=== PATIENT | male | born 1950 | race African-American/Black ===

== ENCOUNTER 2024-02-06 17:16 | Observation (INO) | payer MEDICARE ==
--- NOTE | 2024-02-06 17:18 | ED ---
Weakness HPI - General Stated complaint: Failure to thrive Time Seen by Provider: 02/06/24 17:18 Source: RN notes reviewed, old records reviewed, Caregiver Mode of arrival: EMS Limitations: altered mental status, physical limitation - History of Present Illness Initial comments: This is a 73-year-old male to the ER for evaluation today. Patient notes today for evaluation regards to altered mental status weakness debility failure to thrive. Patient is brought to emergency department for evaluation of failure to thrive weakness as he was seen by family members who thinks that it is significant altered mentally and back condition not taking care of himself not eating or drinking Patient is unable to provide any answers to questions here in the ER MD Complaint: generalized weakness, lack of energy, difficulty walking -: unknown Location: generalized Severity: severe Severity scale (1-10): 10 Consistency: constant Improves with: none Worsens with: none Context: history of similar Associated Symptoms: denies other symptoms, confusion - Related Data Allergies Allergy/AdvReac Type Severity Reaction Status Date / Time No Known Allergies Allergy Verified 02/06/24 17:51 Review of Systems ROS Statement: Those systems with pertinent positive or pertinent negative responses have been documented in the HPI. ROS Other: All systems not noted in ROS Statement are negative. General Exam Limitations: altered mental status, physical limitation General appearance: alert, in no apparent distress Head exam: Present: atraumatic, normocephalic, normal inspection Eye exam: Present: normal appearance, PERRL, EOMI. Absent: scleral icterus, conjunctival injection, periorbital swelling ENT exam: Present: normal exam, mucous membranes moist Neck exam: Present: normal inspection. Absent: tenderness, meningismus, lymphadenopathy Respiratory exam: Present: normal lung sounds bilaterally. Absent: respiratory distress, wheezes, rales, rhonchi, stridor Cardiovascular Exam: Present: regular rate, normal rhythm, normal heart sounds. Absent: systolic murmur, diastolic murmur, rubs, gallop, clicks GI/Abdominal exam: Present: soft, normal bowel sounds. Absent: distended, tenderness, guarding, rebound, rigid Extremities exam: Present: normal inspection, full ROM, normal capillary refill. Absent: tenderness, pedal edema, joint swelling, calf tenderness Back exam: Present: normal inspection Neurological exam: Present: alert, oriented X3, CN II-XII intact Psychiatric exam: Present: normal affect, normal mood Skin exam: Present: warm, dry, intact, normal color. Absent: rash Course Vital Signs 02/06/24 02/06/24 17:43 18:40 Temperature 97.9 F Pulse Rate 99 90 Respiratory 18 20 Rate Blood Pressure 105/72 121/78 O2 Sat by Pulse 97 93 L Oximetry - Reevaluation(s) Reevaluation #1: 02/06/24 17:38 Medical records reviewed Reevaluation #2: 02/06/24 21:09 Patient has no improvement here in the ER Reevaluation #3: 02/06/24 21:09 Patient informed of results questions answered Reevaluation #4: Was pt. sent in by a medical professional or institution (, SONAM, INTERNAL MEDICINE NURSE PRACTITIONER, urgent care, hospital, or correction...) When possible be specific @ -no Did you speak to anyone other than the patient for history (EMS, parent, family, police, friend...)? What history was obtained from this source @ -no Did you review nursing and triage notes (agree or disagree)? Why? @ -agree Are old charts reviewed (outside hosp., previous admission, EMS record, old EKG, old radiological studies, urgent care reports/EKG's, correction records)? Report findings @ -yes Differential Diagnosis (chest pain, altered mental status, abdominal pain women, abdominal pain men, vaginal bleeding, weakness, fever, dyspnea, syncope, headache, dizziness, GI bleed, back pain, seizure, CVA, palpatations, mental health, musculoskeletal)? @ -prior EKG interpreted by me (3pts min.). @ -yes X-rays interpreted by me (1pt min.). @ -yes negative for acute disease CT interpreted by me (1pt min.). @ -no U/S interpreted by me (1pt. min.). @ -no What testing was considered but not performed or refused? (CT, X-rays, U/S, labs)? Why? @ -none What meds were considered but not given or refused? Why? @ -none Did you discuss the management of the patient with other professionals ( professionals i.e. SONAM Steiner, INTERNAL MEDICINE NURSE PRACTITIONER, lab, RT, psych nurse, social work supervisor, typesetter perforator operator, teacher, correction officer city or county jail, showcase maker)? Give summary @ -no Was smoking cessation discussed for >3mins.? @ -no Was critical care preformed (if so, how long)? @ -no Were there social determinants of health that impacted care today? How? (Homelessness, low income, unemployed, alcoholism, drug addiction, transportation, low edu. Level, literacy, decrease access to med. care, alf, rehab)? @ -none Was there de-escalation of care discussed even if they declined (Discuss DNR or withdrawal of care, Hospice)? DNR status @ -no What co-morbidities impacted this encounter? (DM, HTN, Smoking, COPD, CAD, Cancer, CVA, ARF, Chemo, Hep., AIDS, mental health diagnosis, sleep apnea, morbid obesity)? @ -none Was patient admitted / discharged? Hospital course, mention meds given and route, prescriptions, significant lab abnormalities, going to OR and other pertinent info. @ - Undiagnosed new problem with uncertain prognosis? @ -no Drug Therapy requiring intensive monitoring for toxicity (Heparin, Nitro, Insulin, Cardizem)? @ -no Were any procedures done? @ -no Diagnosis/symptom? @ - Acute, or Chronic, or Acute on Chronic? @ -Acute Uncomplicated (without systemic symptoms) or Complicated (systemic symptoms)? @ -Complicated Side effects of treatment? @ -no Exacerbation, Progression, or Severe Exacerbation? @ -exacerbation Poses a threat to life or bodily function? How? (Chest pain, USA, WA, pneumonia, PE, COPD, DKA, ARF, appy, cholecystitis, CVA, Diverticulitis, Homicidal, Suicidal, threat to staff... and all critical care pts) @ -yes Reevaluation #5: Differential Altered Mental Status: Hypoglycemia, DKA, hypercapnia, ETOH, overdose, CO poisoning, trauma, myxedema coma, HTN encephalopathy, infection, encephalitis, psychosis, intercranial hemorrhage, hepatic encephalopathy, meningitis, CVA, this is not meant to be an all-inclusive list Differential Weakness: Hypoglycemia, shock, sepsis, hyponatremia, anemia, infection, WA, ETOH, adverse medicine reaction, overdose, stroke, this is not meant to be an all-inclusive list. - Consultations Consultation #1: Spoke with [facility] who agrees to admit this patient EKG Findings - EKG Comments: EKG Findings:: EKG is sinus 96 OK 161 QRS 89 QTc 386 - EKG Results: EKG: interpreted by ERMD Medical Decision Making - Medical Decision Making 73 male will be admitted for weakness failure to thrive and debility, severe dehydration and able to take care of himself. - Lab Data Result diagrams: 02/06/24 18:28 02/06/24 18:25 Lab Results 02/06/24 02/06/24 02/06/24 Range/Units 18:25 18:25 18:25 WBC (3.8-10.6) k/uL RBC (4.30-5.90) m/uL Hgb (13.0-17.5) gm/dL Hct (39.0-53.0) % MCV (80.0-100.0) fL MCH (25.0-35.0) pg MCHC (31.0-37.0) g/dL RDW (11.5-15.5) % Plt Count (150-450) k/uL MPV Neutrophils % % Lymphocytes % % Monocytes % % Eosinophils % % Basophils % % Neutrophils # (1.3-7.7) k/uL Lymphocytes # (1.0-4.8) k/uL Monocytes # (0-1.0) k/uL Eosinophils # (0-0.7) k/uL Basophils # (0-0.2) k/uL PT 11.0 (10.0-12.5) sec INR 1.0 (<1.2) APTT 23.9 (22.0-30.0) sec Sodium 138 (137-145) mmol/L Potassium 4.1 (3.5-5.1) mmol/L Chloride 101 (98-107) mmol/L Carbon Dioxide 33 H (22-30) mmol/L Anion Gap 4 mmol/L BUN 28 H (9-20) mg/dL Creatinine 0.82 (0.66-1.25) mg/dL Est GFR (CKD-EPI)AfAm >90 (>60 ml/min/1.73 sqM) Est GFR (CKD-EPI)NonAf 88 (>60 ml/min/1.73 sqM) Glucose 116 H (74-99) mg/dL Calcium 9.4 (8.4-10.2) mg/dL Phosphorus 3.3 (2.5-4.5) mg/dL Magnesium 2.3 (1.6-2.3) mg/dL Total Bilirubin 1.2 (0.2-1.3) mg/dL AST 45 (17-59) U/L ALT 35 (4-49) U/L Alkaline Phosphatase 91 (38-126) U/L Ammonia (<30) umol/L Troponin I <0.012 (0.000-0.034) ng/mL Total Protein 6.6 (6.3-8.2) g/dL Albumin 3.6 (3.5-5.0) g/dL TSH 4.600 (0.465-4.680) mIU/L Serum Alcohol <10 mg/dL 02/06/24 02/06/24 Range/Units 18:25 18:28 WBC 18.2 H (3.8-10.6) k/uL RBC 5.27 (4.30-5.90) m/uL Hgb 14.1 (13.0-17.5) gm/dL Hct 43.5 (39.0-53.0) % MCV 82.6 (80.0-100.0) fL MCH 26.8 (25.0-35.0) pg MCHC 32.4 (31.0-37.0) g/dL RDW 14.7 (11.5-15.5) % Plt Count 336 (150-450) k/uL MPV 7.5 Neutrophils % 65 % Lymphocytes % 28 % Monocytes % 4 % Eosinophils % 0 % Basophils % 0 % Neutrophils # 11.9 H (1.3-7.7) k/uL Lymphocytes # 5.1 H (1.0-4.8) k/uL Monocytes # 0.8 (0-1.0) k/uL Eosinophils # 0.0 (0-0.7) k/uL Basophils # 0.1 (0-0.2) k/uL PT (10.0-12.5) sec INR (<1.2) APTT (22.0-30.0) sec Sodium (137-145) mmol/L Potassium (3.5-5.1) mmol/L Chloride (98-107) mmol/L Carbon Dioxide (22-30) mmol/L Anion Gap mmol/L BUN (9-20) mg/dL Creatinine (0.66-1.25) mg/dL Est GFR (CKD-EPI)AfAm (>60 ml/min/1.73 sqM) Est GFR (CKD-EPI)NonAf (>60 ml/min/1.73 sqM) Glucose (74-99) mg/dL Calcium (8.4-10.2) mg/dL Phosphorus (2.5-4.5) mg/dL Magnesium (1.6-2.3) mg/dL Total Bilirubin (0.2-1.3) mg/dL AST (17-59) U/L ALT (4-49) U/L Alkaline Phosphatase (38-126) U/L Ammonia <9 (<30) umol/L Troponin I (0.000-0.034) ng/mL Total Protein (6.3-8.2) g/dL Albumin (3.5-5.0) g/dL TSH (0.465-4.680) mIU/L Serum Alcohol mg/dL - Radiology Data Radiology results: report reviewed (Plain chest x-ray negative for acute disease), image reviewed Disposition Clinical Impression: Dehydration, Weakness, Failure to thrive, Anorexia Disposition: ADMITTED IP TO THIS [facility] Condition: Fair Is patient prescribed a controlled substance at d/c from ED?: No Referrals: None,Stated [Primary Care Provider] - 1-2 days Time of Disposition: 21:00
[2024-02-06] MEDS: SODIUM CHLORIDE 0.9% 1,000 ML IV STA (18:38)
[2024-02-06 18:40] LABS: Basophils # (A) 0.1 k/uL (0-0.2); Basophils % (A) 0 %; Eosinophils % (A) 0 %; HCT 43.5 % (39.0-53.0); HGB 14.1 gm/dL (13.0-17.5); Lymphocytes # (A) 5.1 k/uL (1.0-4.8); Lymphocytes % (A) 28 %; MCH 26.8 pg (25.0-35.0); MCHC 32.4 g/dL (31.0-37.0); MCV 82.6 fL (80.0-100.0); Mean Platelet Volume 7.5; Monocytes # (A) 0.8 k/uL (0-1.0); Monocytes % (A) 4 %; Neutrophils # (A) 11.9 k/uL (1.3-7.7); Neutrophils % (A) 65 %; Platelet Count 336 k/uL (150-450); RBC 5.27 m/uL (4.30-5.90); RDW 14.7 % (11.5-15.5); WBC 18.2 k/uL (3.8-10.6)
[2024-02-06 18:53] LABS: ALT 35 U/L (4-49); AST 45 U/L (17-59); African American GFR (CKD) >90 (>60 ml/min/1.73 sqM); Albumin 3.6 g/dL (3.5-5.0); Alcohol <10 mg/dL; Alkaline Phosphatase 91 U/L (38-126); Anion Gap 4 mmol/L; Blood Urea Nitrogen 28 mg/dL (9-20); Calcium 9.4 mg/dL (8.4-10.2); Carbon Dioxide 33 mmol/L (22-30); Chloride 101 mmol/L (98-107); Glucose 116 mg/dL (74-99); Magnesium 2.3 mg/dL (1.6-2.3); Non-African American GFR(CKD) 88 (>60 ml/min/1.73 sqM); Phosphorus 3.3 mg/dL (2.5-4.5); Potassium 4.1 mmol/L (3.5-5.1); Sodium 138 mmol/L (137-145); Total Bilirubin 1.2 mg/dL (0.2-1.3); Total Protein 6.6 g/dL (6.3-8.2)
[2024-02-06 19:03] LABS: Partial Thromboplastin Time 23.9 sec (22.0-30.0)
--- NOTE | 2024-02-06 20:17 | XR ---
EXAMINATION TYPE: XR chest 2V DATE OF EXAM: 02/06/2024 7:33 PM COMPARISON: None available. CLINICAL INDICATION: Male, 73 years old with history of Weakness; [facility] TECHNIQUE: XR chest 2V Frontal and lateral views of the chest. FINDINGS: Lungs/Pleura: There is no evidence of pleural effusion, focal consolidation, or pneumothorax. Pulmonary vascularity: Unremarkable. Heart/mediastinum: Cardiomediastinal silhouette is unremarkable. Musculoskeletal: No acute osseous pathology. Other findings: None IMPRESSION: No acute cardiopulmonary disease/process. [facility] Honeycutt, , 02/06/2024 8:15 PM
--- NOTE | 2024-02-06 20:36 | CT ---
EXAMINATION TYPE: CT brain wo con DATE OF EXAM: 02/06/2024 7:46 PM COMPARISON: None available.. CLINICAL INDICATION: Male, 73 years old with history of ams, AMS. Pt not cooperating, scanned three t imes for motion, best possible images. TECHNIQUE: Brain: Axial CT images of the brain were obtained with coronal and sagittal reformats created and rev iewed. Contrast used: None. Oral contrast used: None. CT DLP: 3451.4 mGycm, Automated exposure control for dose reduction was used. FINDINGS: Study is significantly limited due to motion artifact. Brain: No definite intracranial hemorrhage or midline shift. No acute mass effect. Ventriculomegaly and prom inence of the sulci which could be in part related to at least moderate generalized cerebral volume l oss. No sizable extra-axial fluid collection. Basal cisterns appear grossly patent. No definite large scalp hematoma or depressed calvarial fracture. Paranasal sinuses and mastoid air cells appear paten t. IMPRESSION: No acute parenchymal hemorrhage, midline shift or mass effect within the limitations described above. Consider further evaluation with MRI if clinically warranted. [facility], , 02/06/2024 8:34 PM
[2024-02-06] MEDS ORDERED: MORPHINE SULFATE 4 MG/ML SYRINGE IV PRN (21:07)
[2024-02-06] MEDS ORDERED: NALOXONE 0.4 MG/ML 1 ML VIAL IV PRN (21:07)
[2024-02-06] MEDS ORDERED: ONDANSETRON 4 MG/2 ML VIAL IVP PRN (21:07)
[2024-02-06] MEDS: PANTOPRAZOLE 40 MG/10 ML VIAL IV SCH (21:22)
[2024-02-06] MEDS: SODIUM CHLORIDE 0.9% 1,000 ML IV SCH (21:23)
[2024-02-07 05:53] LABS: Amorphous Sediment,Urine Rare /hpf; Appearance,Urine Cloudy (Clear); Bilirubin,Urine Negative (Negative); Blood,Urine Moderate (Negative); Calcium Oxalate Crystals,Urine Many /hpf; Color,Urine Yellow; Glucose,Urine (UA) Negative (Negative); Ketones,Urine Trace (Negative); Leukocyte Esterase,Urine Small (Negative); Mucus,Urine Rare /hpf; Nitrite,Urine Negative (Negative); PH, Urine 5.5 (5.0-8.0); Protein,Urine Trace (Negative); RBC,Urine 5 /hpf (0-5); Specific Gravity,Urine 1.031 (1.001-1.035); WBC,Urine 10 /hpf (0-5)
[2024-02-07 07:52] LABS: Basophils % (A) 0 %; Eosinophils % (A) 0 %; HCT 39.6 % (39.0-53.0); HGB 12.7 gm/dL (13.0-17.5); Lymphocytes # (A) 5.1 k/uL (1.0-4.8); Lymphocytes % (A) 34 %; MCH 26.8 pg (25.0-35.0); MCV 83.9 fL (80.0-100.0); Mean Platelet Volume 7.3; Monocytes # (A) 0.7 k/uL (0-1.0); Monocytes % (A) 4 %; Neutrophils # (A) 9.1 k/uL (1.3-7.7); Neutrophils % (A) 60 %; Platelet Count 318 k/uL (150-450); RBC 4.73 m/uL (4.30-5.90); RDW 14.8 % (11.5-15.5); WBC 15.2 k/uL (3.8-10.6)
[2024-02-07 08:33] LABS: ALT 28 U/L (4-49); AST 30 U/L (17-59); African American GFR (CKD) >90 (>60 ml/min/1.73 sqM); Albumin 3.1 g/dL (3.5-5.0); Alkaline Phosphatase 77 U/L (38-126); Anion Gap 2 mmol/L; Blood Urea Nitrogen 22 mg/dL (9-20); Carbon Dioxide 30 mmol/L (22-30); Chloride 107 mmol/L (98-107); Glucose 98 mg/dL (74-99); Magnesium 2.2 mg/dL (1.6-2.3); Non-African American GFR(CKD) >90 (>60 ml/min/1.73 sqM); Phosphorus 3.4 mg/dL (2.5-4.5); Potassium 4.3 mmol/L (3.5-5.1); Sodium 139 mmol/L (137-145); Total Bilirubin 1.4 mg/dL (0.2-1.3)
[2024-02-07 13:49] VITALS: BMI 18.3
--- NOTE | 2024-02-07 22:24 | P.HPIM ---
History of Present Illness H&P Date: 02/07/24 Chief Complaint: Failure to thrive Patient is a 73-year-old male with known history of dementia, hypertension, hyperlipidemia, GERD, recent admission at [facility] due to UTI/pneumonia. Patient was brought to the hospital due to failure to thrive and altered mental status and generalized weakness. Patient was brought to the hospital by EMS and her daughter is at bedside currently. Patient is unable to take care of himself at home. Has not been eating by himself or drinking. Patient was discharged from [facility] 3 days ago. He was there for 1 week and was treated for UTI and pneumonia. According to her daughter at bedside patient has not been eating well and drinking and was still released from the hospital. He was discharged home on antibiotics on home ciprofloxacin. After reaching home patient has not acting right. Family is unable to take care of himself. Patient also had pressure ulcer in the sacral region. Apparently patient fell in July 2023 and injured his lower back. He was taken to [facility] at the time. Patient has not been ambulating since then. EKG showed sinus rhythm with heart rate 76 Chest x-ray showed no acute cardiopulmonary process. CT head showed no acute parenchymal hemorrhage, midline shift or mass effect within the limitations described above. Laboratory data showed WBC 18.2 hemoglobin 14.1 and platelets 336 Sodium 138 potassium 4.1 chloride 101 bicarb is 33 BUN 28 and creatinine 0.82 and blood sugar 116 liver enzymes are not elevated troponin x 1 negative and ammonia less than 9, TSH 4.6. Urinalysis showed trace protein trace ketones moderate blood small leukocyte esterase RBCs 5 WBCs 10. Serum alcohol level is less than 10. Review of Systems ROS unobtainable: due to mental status Past Medical History Past Medical History: Dementia, GERD/Reflux, Hyperlipidemia, Hypertension, Pneumonia History of Any Multi-Drug Resistant Organisms: None Reported Past Surgical History: No Surgical Hx Reported Past Anesthesia/Blood Transfusion Reactions: No Reported Reaction Past Psychological History: No Psychological Hx Reported Smoking Status: Never smoker Past Alcohol Use History: None Reported Past Drug Use History: None Reported Medications and Allergies Home Medications Medication Instructions Recorded Confirmed Type Aspirin EC [Ecotrin Low Dose] 81 mg PO DAILY 02/07/24 02/07/24 History Ciprofloxacin HCl [Cipro] 500 mg PO BID 02/07/24 02/07/24 History Docusate [Colace] 100 mg PO BID 02/07/24 02/07/24 History Memantine [Namenda] 10 mg PO BID 02/07/24 02/07/24 History Metoprolol Tartrate [Lopressor] 12.5 mg PO BID 02/07/24 02/07/24 History OLANZapine ODT [ZyPREXA ZYDIS] 5 mg PO HS 02/07/24 02/07/24 History Pantoprazole Sodium [Protonix] 20 mg PO BID 02/07/24 02/07/24 History Simvastatin [Zocor] 40 mg PO HS 02/07/24 02/07/24 History Valproic Acid Oral Soln [Depakene 250 mg PO BID 02/07/24 02/07/24 History Syrup] hydroCHLOROthiazide [Hydrodiuril] 25 mg PO DAILY 02/07/24 02/07/24 History Allergies Allergy/AdvReac Type Severity Reaction Status Date / Time No Known Allergies Allergy Verified 02/07/24 11:33 Physical Exam Vitals: Vital Signs Temp Pulse Pulse Resp BP BP Pulse Ox 02/07/24 07:12 97.5 F L 77 18 128/53 91 L 02/07/24 01:48 97.6 F 79 18 116/85 92 L 02/06/24 22:30 97.6 F 60 16 114/75 94 L 02/06/24 21:43 80 18 105/69 97 02/06/24 18:40 90 20 121/78 93 L 02/06/24 17:43 97.9 F 99 18 105/72 97 Intake and Output 02/06/24 02/07/24 02/07/24 22:59 06:59 14:59 Intake Total 0 Output Total 350 Balance -350 Intake: Oral 0 Output: Urine 350 Other: Voiding Method External Catheter Weight 61.5 kg PHYSICAL EXAMINATION: Patient is lying in the bed. Patient is awake alert but unable to communicate... HEENT: Normocephalic. Neck is supple. Pupils reactive. Nostrils clear. Oral cavity is moist. Neck reveals no JVD, carotid bruits, or thyromegaly. CHEST EXAMINATION: Trachea is central. Symmetrical expansion. Bibasilar diminished sounds. Lung etienne clear to auscultation and percussion. CARDIAC: Normal S1, S2 with no gallops. No murmurs ABDOMEN: Soft. Bowel sounds normal. No organomegaly. No abdominal bruits. Extremities: reveal no edema. No clubbing or cyanosis Neurologically awake, alert, oriented x 0. Contracted. No gross focal deficits. Skin: No rash or skin lesions. Psychiatric: Coperative. Could not be assessed completely Musculoskeletal: No joint swelling or deformity. Results CBC & Chem 7: 02/07/24 06:51 02/07/24 06:51 Labs: Abnormal Lab Results - Last 24 Hours (Table) 02/06/24 02/06/24 02/07/24 Range/Units 18:25 18:28 05:05 WBC 18.2 H (3.8-10.6) k/uL Hgb (13.0-17.5) gm/dL Neutrophils # 11.9 H (1.3-7.7) k/uL Lymphocytes # 5.1 H (1.0-4.8) k/uL Carbon Dioxide 33 H (22-30) mmol/L BUN 28 H (9-20) mg/dL Creatinine (0.66-1.25) mg/dL Glucose 116 H (74-99) mg/dL Total Bilirubin (0.2-1.3) mg/dL Total Protein (6.3-8.2) g/dL Albumin (3.5-5.0) g/dL Urine Protein Trace H (Negative) Urine Ketones Trace H (Negative) Urine Blood Moderate H (Negative) Ur Leukocyte Esterase Small H (Negative) Urine WBC 10 H (0-5) /hpf Calcium Oxalate Crystal Many H (None) /hpf Amorphous Sediment Rare H (None) /hpf Urine Mucus Rare H (None) /hpf 02/07/24 02/07/24 Range/Units 06:51 06:51 WBC 15.2 H (3.8-10.6) k/uL Hgb 12.7 L (13.0-17.5) gm/dL Neutrophils # 9.1 H (1.3-7.7) k/uL Lymphocytes # 5.1 H (1.0-4.8) k/uL Carbon Dioxide (22-30) mmol/L BUN 22 H (9-20) mg/dL Creatinine 0.60 L (0.66-1.25) mg/dL Glucose (74-99) mg/dL Total Bilirubin 1.4 H (0.2-1.3) mg/dL Total Protein 6.0 L (6.3-8.2) g/dL Albumin 3.1 L (3.5-5.0) g/dL Urine Protein (Negative) Urine Ketones (Negative) Urine Blood (Negative) Ur Leukocyte Esterase (Negative) Urine WBC (0-5) /hpf Calcium Oxalate Crystal (None) /hpf Amorphous Sediment (None) /hpf Urine Mucus (None) /hpf Thrombosis Risk Factor Assmnt - DVT/VTE Prophylaxis DVT/VTE Prophylaxis: Pharmacologic Prophylaxis ordered - Choose All That Apply Any of the Below Risk Factors Present?: Yes Each Factor Represents 1 point: Medical pt on bed rest, Serious lung disease incl. pneumonia (< 1month) Other Risk Factors: Yes Each Risk Factor Represents 2 Points: Age 61-74 years Other congenital or acquired thrombophilia - If yes, enter type in comment: No Thrombosis Risk Factor Assessment Total Risk Factor Score: 4 Thrombosis Risk Factor Assessment Level: Moderate Risk Assessment and Plan Assessment: Failure to thrive with generalized generalized weakness, dehydration and unable to take her himself. Advanced dementia Leukocytosis. Trending down. UA and chest x-ray negative for infection. Follow-up blood cultures. Recent admission at [facility], was treated for UTI/pneumonia Moderate to severe protein Calorie malnutrition abdominal Hypertension Hyperlipidemia GERD Sacral decub ulcer DVT prophylaxis with heparin subcu Plan: Patient will be continued on IV hydration with normal saline. Speech and swallow evaluation. One-to-one feeding. Continue supportive care. Continue with valproic acid. Zyprexa is on hold. Hydrochlorothiazide will be on hold as well. Continue pain management and follow-up closely. Family is unable to take care of himself at home. May need halfway transfer. Prognosis is guarded at this time. Time with Patient: Greater than 30
[2024-02-08] MEDS: VALPROIC ACID ORAL SOLN 250 MG/5 ML CUP PO SCH (09:22)
[2024-02-08] MEDS: ASPIRIN 81 MG PO SCH (09:23)
[2024-02-08 09:40] LABS: BUN/Creat Ratio 23.67 Ratio (12.00-20.00); Basophils # (A) 0.03 X 10*3/uL (0.00-0.10); Basophils % (A) 0.3 %; Blood Urea Nitrogen 14.2 mg/dL (9.0-27.0); Calcium 8.9 mg/dL (8.7-10.3); Carbon Dioxide 28.1 mmol/L (21.6-31.8); Chloride 111 mmol/L (96-109); Eosinophils # (A) 0.08 X 10*3/uL (0.04-0.35); Eosinophils % (A) 0.8 %; Glucose 94 mg/dL (70-110); HGB 11.1 g/dL (13.0-17.0); Lymphocytes # (A) 3.85 X 10*3/uL (0.90-5.00); Lymphocytes % (A) 37.1 %; MCH 26.9 pg (27.0-32.0); MCHC 31.7 g/dL (32.0-37.0); Mean Platelet Volume 10.2 FL (9.5-12.2); Monocytes # (A) 0.57 X 10*3/uL (0.20-1.00); Monocytes % (A) 5.5 %; NRBC Per 100 WBC 0 X 10*3/uL (0.00-0.01); Neutrophils # (A) 5.83 X 10*3/uL (1.80-7.70); Platelet Count 271 X 10*3/uL (140-440); Potassium 4.6 mmol/L (3.5-5.5); RBC 4.12 X 10*6/uL (4.40-5.60); RDW 15.1 % (11.5-14.5); Sodium 146 mmol/L (135-145); WBC 10.39 X 10*3/uL (4.50-10.00)
--- NOTE | 2024-02-08 14:51 | P.PN ---
Subjective Progress Note Date: 02/08/24 Patient is a 73-year-old male with known history of dementia, hypertension, hyperlipidemia, GERD, recent admission at [facility] due to UTI/pneumonia. Patient was brought to the hospital due to failure to thrive and altered mental status and generalized weakness. Patient was brought to the hospital by EMS and her daughter is at bedside currently. Patient is unable to take care of himself at home. Has not been eating by himself or drinking. Patient was discharged from [facility] 3 days ago. He was there for 1 week and was treated for UTI and pneumonia. According to her daughter at bedside patient has not been eating well and drinking and was still released from the hospital. He was discharged home on antibiotics on home ciprofloxacin. After reaching home patient has not acting right. Family is unable to take care of himself. Patient also had pressure ulcer in the sacral region. Apparently patient fell in July 2023 and injured his lower back. He was taken to [facility] at the time. Patient has not been ambulating since then. EKG showed sinus rhythm with heart rate 76 Chest x-ray showed no acute cardiopulmonary process. CT head showed no acute parenchymal hemorrhage, midline shift or mass effect within the limitations described above. Laboratory data showed WBC 18.2 hemoglobin 14.1 and platelets 336 Sodium 138 potassium 4.1 chloride 101 bicarb is 33 BUN 28 and creatinine 0.82 and blood sugar 116 liver enzymes are not elevated troponin x 1 negative and ammonia less than 9, TSH 4.6. Urinalysis showed trace protein trace ketones moderate blood small leukocyte esterase RBCs 5 WBCs 10. Serum alcohol level is less than 10. 02/07. Patient seen and examined. Fluids changed to D5 half-normal saline. at the bedside, states patient has been having problems swallowing. REVIEW OF SYSTEMS: CONSTITUTIONAL: No fever, no malaise,. CARDIOVASCULAR: No chest pain, no palpitations, no syncope. PULMONARY: No shortness of breath, no cough, GASTROINTESTINAL: No diarrhea, no nausea, no vomiting, no abdominal pain. NEUROLOGICAL: No headaches, no weakness, PHYSICAL EXAMINATION: GENERAL: The patient is alert, malnourished HEENT: Pupils are round and equally reacting to light. EOMI. No scleral icterus. No conjunctival pallor. Normocephalic, atraumatic. No pharyngeal erythema. No thyromegaly. CARDIOVASCULAR: S1 and S2 present. No murmurs, rubs, or gallops. PULMONARY: Chest is clear to auscultation, no wheezing or crackles. ABDOMEN: Soft, nontender, nondistended, normoactive bowel sounds. No palpable organomegaly. MUSCULOSKELETAL: No joint swelling or deformity. EXTREMITIES: No cyanosis, clubbing, or pedal edema. NEUROLOGICAL: Gross neurological examination did not reveal any focal deficits. SKIN: No rashes. Assessment and plan Failure to thrive with generalized generalized weakness, dehydration and unable to take her himself. Advanced dementia Leukocytosis. Trending down. UA and chest x-ray negative for infection. Fol low-up blood cultures. Recent admission at [facility], was treated for UTI/pneumonia Moderate to severe protein Calorie malnutrition abdominal Hypertension Hyperlipidemia GERD Sacral decub ulcer Monitor vital signs Monitor CBC Monitor CMP Fall precaution Delirium precautions continue IV hydration Speech consulted PT and OT evaluation Labs and medication were reviewed.. Continue same treatment. Continue with symptomatic treatment. Resume home medication. Monitor labs and vitals. DVT and GI prophylaxis. Further recommendations as per clinical course of the patient Dictation was produced using [employer] dictation software. please excuse any grammatical, word or spelling errors. Objective - Vital Signs Vital signs: Vital Signs Temp 97.7 F 02/08/24 11:25 Pulse 78 02/08/24 11:25 Resp 14 02/08/24 11:25 BP 126/56 02/08/24 11:25 Pulse Ox 100 02/08/24 11:25 FiO2 Intake & Output 02/07/24 02/08/24 02/08/24 18:59 06:59 18:59 Output Total 150 Balance -150 Weight 61.5 kg Output: Urine 150 Other: Voiding Method External Catheter External Catheter External Catheter # Voids 2 - Labs CBC & Chem 7: 02/08/24 05:16 02/08/24 05:16 Labs: Abnormal Lab Results - Last 24 Hours (Table) 02/08/24 02/08/24 Range/Units 05:16 05:16 WBC 10.39 H (4.50-10.00) X 10*3/uL RBC 4.12 L (4.40-5.60) X 10*6/uL Hgb 11.1 L (13.0-17.0) g/dL Hct 35.0 L (39.6-50.0) % MCH 26.9 L (27.0-32.0) pg MCHC 31.7 L (32.0-37.0) g/dL RDW 15.1 H (11.5-14.5) % Sodium 146 H (135-145) mmol/L Chloride 111 H (96-109) mmol/L BUN/Creatinine Ratio 23.67 H (12.00-20.00) Ratio Microbiology - Last 24 Hours (Table) 02/06/24 18:25 Blood Culture - Preliminary Blood
[2024-02-08] MEDS: DEXTROSE 5%-0.45% NACL 1,000 ML IV SCH (16:47)
[2024-02-08] MEDS: METOPROLOL TARTRATE 12.5 MG TAB PO SCH (21:42)
[2024-02-08] MEDS: MEMANTINE 10 MG TAB PO SCH (21:42)
--- NOTE | 2024-02-09 13:25 | P.PN ---
Subjective Progress Note Date: 02/09/24 Patient is a 73-year-old male with known history of dementia, hypertension, hyperlipidemia, GERD, recent admission at [facility] due to UTI/pneumonia. Patient was brought to the hospital due to failure to thrive and altered mental status and generalized weakness. Patient was brought to the hospital by EMS and her daughter is at bedside currently. Patient is unable to take care of himself at home. Has not been eating by himself or drinking. Patient was discharged from [facility] 3 days ago. He was there for 1 week and was treated for UTI and pneumonia. According to her daughter at bedside patient has not been eating well and drinking and was still released from the hospital. He was discharged home on antibiotics on home ciprofloxacin. After reaching home patient has not acting right. Family is unable to take care of himself. Patient also had pressure ulcer in the sacral region. Apparently patient fell in July 2023 and injured his lower back. He was taken to [facility] at the time. Patient has not been ambulating since then. EKG showed sinus rhythm with heart rate 76 Chest x-ray showed no acute cardiopulmonary process. CT head showed no acute parenchymal hemorrhage, midline shift or mass effect within the limitations described above. Laboratory data showed WBC 18.2 hemoglobin 14.1 and platelets 336 Sodium 138 potassium 4.1 chloride 101 bicarb is 33 BUN 28 and creatinine 0.82 and blood sugar 116 liver enzymes are not elevated troponin x 1 negative and ammonia less than 9, TSH 4.6. Urinalysis showed trace protein trace ketones moderate blood small leukocyte esterase RBCs 5 WBCs 10. Serum alcohol level is less than 10. 02/07. Patient seen and examined. Fluids changed to D5 half-normal saline. at the bedside, states patient has been having problems swallowing. 02/08. Patient seen and examined. Patient history of poor appetite. at the bedside is requesting hospice information REVIEW OF SYSTEMS: CONSTITUTIONAL: No fever, no malaise,. CARDIOVASCULAR: No chest pain, no palpitations, no syncope. PULMONARY: No shortness of breath, no cough, GASTROINTESTINAL: No diarrhea, no nausea, no vomiting, no abdominal pain. NEUROLOGICAL: No headaches, no weakness, PHYSICAL EXAMINATION: GENERAL: The patient is alert, malnourished HEENT: Pupils are round and equally reacting to light. EOMI. No scleral icterus. No conjunctival pallor. Normocephalic, atraumatic. No pharyngeal erythema. No thyromegaly. CARDIOVASCULAR: S1 and S2 present. No murmurs, rubs, or gallops. PULMONARY: Chest is clear to auscultation, no wheezing or crackles. ABDOMEN: Soft, nontender, nondistended, normoactive bowel sounds. No palpable organomegaly. MUSCULOSKELETAL: No joint swelling or deformity. EXTREMITIES: No cyanosis, clubbing, or pedal edema. NEUROLOGICAL: Gross neurological examination did not reveal any focal deficits. SKIN: No rashes. Assessment and plan Failure to thrive with generalized generalized weakness, dehydration and unable to take her himself. Advanced dementia Leukocytosis. Trending down. UA and chest x-ray negative for infection. Follow-up blood cultures. Recent admission at [facility], was treated for UTI/pneumonia Moderate to severe protein Calorie malnutrition abdominal Hypertension Hyperlipidemia GERD Sacral decub ulcer Monitor vital signs Monitor CBC Monitor CMP Fall precaution Delirium precautions continue IV hydration Speech consulted Hospice consulted PT and OT evaluation Labs and medication were reviewed.. Continue same treatment. Continue with symptomatic treatment. Resume home medication. Monitor labs and vitals. DVT and GI prophylaxis. Further recommendations as per clinical course of the patient Dictation was produced using [employer] dictation software. please excuse any grammatical, word or spelling errors. Objective - Vital Signs Vital signs: Vital Signs Temp 97.6 F 02/09/24 06:59 Pulse 102 H 02/09/24 09:00 Resp 16 02/09/24 09:00 BP 116/57 02/09/24 06:59 Pulse Ox 100 02/09/24 06:59 FiO2 Intake & Output 02/08/24 02/09/24 02/09/24 18:59 06:59 18:59 Intake Total 60 600 Balance 60 600 Intake: Oral 60 600 Other: Voiding Method External Catheter External Catheter Incontinent # Voids 1 2 - Labs CBC & Chem 7: 02/08/24 05:16 02/08/24 05:16 Labs: Microbiology - Last 24 Hours (Table) 02/06/24 18:25 Blood Culture - Preliminary Blood
[2024-02-10 09:01] LABS: Basophils % (A) 0 %; Eosinophils # (A) 0.1 k/uL (0-0.7); Eosinophils % (A) 0 %; HCT 37.2 % (39.0-53.0); HGB 11.9 gm/dL (13.0-17.5); Lymphocytes # (A) 3.7 k/uL (1.0-4.8); Lymphocytes % (A) 23 %; MCH 26.9 pg (25.0-35.0); MCHC 31.8 g/dL (31.0-37.0); MCV 84.5 fL (80.0-100.0); Mean Platelet Volume 7.3; Monocytes # (A) 0.4 k/uL (0-1.0); Monocytes % (A) 2 %; Neutrophils # (A) 11.8 k/uL (1.3-7.7); Neutrophils % (A) 74 %; Platelet Count 312 k/uL (150-450); WBC 16.1 k/uL (3.8-10.6)
[2024-02-10 09:26] LABS: ALT 19 U/L (4-49); AST 21 U/L (17-59); African American GFR (CKD) >90 (>60 ml/min/1.73 sqM); Albumin 2.7 g/dL (3.5-5.0); Alkaline Phosphatase 72 U/L (38-126); Anion Gap 4 mmol/L; Blood Urea Nitrogen 8 mg/dL (9-20); Calcium 8.6 mg/dL (8.4-10.2); Carbon Dioxide 26 mmol/L (22-30); Chloride 105 mmol/L (98-107); Globulin 2.6 g/dL; Glucose 104 mg/dL (74-99); Non-African American GFR(CKD) >90 (>60 ml/min/1.73 sqM); Potassium 4.1 mmol/L (3.5-5.1); Sodium 135 mmol/L (137-145); Total Bilirubin 0.7 mg/dL (0.2-1.3); Total Protein 5.3 g/dL (6.3-8.2)
[2024-02-11 08:22] VITALS: BP 121/60; PULSE 69; RESP 18; TEMP 97.9
--- NOTE | 2024-02-11 09:15 | P.PN ---
Subjective Progress Note Date: 02/10/24 Patient is a 73-year-old male with known history of dementia, hypertension, hyperlipidemia, GERD, recent admission at [facility] due to UTI/pneumonia. Patient was brought to the hospital due to failure to thrive and altered mental status and generalized weakness. Patient was brought to the spital by EMS and her daughter is at bedside currently. Patient is unable to take care of himself at home. Has not been eating by himself or drinking. Patient was discharged from [facility] 3 days ago. He was there for 1 week and was treated for UTI and pneumonia. According to her daughter at bedside patient has not been eating well and drinking and was still released from the hospital. He was discharged home on antibiotics on home ciprofloxacin. After reaching home patient has not acting right. Family is unable to take care of himself. Patient also had pressure ulcer in the sacral region. Apparently patient fell in July 2023 and injured his lower back. He was taken to [facility] at the time. Patient has not been ambulating since then. EKG showed sinus rhythm with heart rate 76 Chest x-ray showed no acute cardiopulmonary process. CT head showed no acute parenchymal hemorrhage, midline shift or mass effect within the limitations described above. Laboratory data showed WBC 18.2 hemoglobin 14.1 and platelets 336 Sodium 138 potassium 4.1 chloride 101 bicarb is 33 BUN 28 and creatinine 0.82 and blood sugar 116 liver enzymes are not elevated troponin x 1 negative and ammonia less than 9, TSH 4.6. Urinalysis showed trace protein trace ketones moderate blood small leukocyte esterase RBCs 5 WBCs 10. Serum alcohol level is less than 10. 02/07. Patient seen and examined. Fluids changed to D5 half-normal saline. at the bedside, states patient has been having problems swallowing. 02/08. Patient seen and examined. Patient history of poor appetite. at the bedside is requesting hospice information 02/10/2024 Patient is seen in follow-up today continues to have no appetite and hospice at the bedside undergoing financial assessment for possible hospice house. Patient significantly debilitated and extremely weak being maintained on gentle hy dration. Patient has significant sacral ulcer that was present on admission and per nursing staff extreme excoriation surrounding the area recommend to continue with offloading and supportive care. Await further discussion with family regarding hospice. REVIEW OF SYSTEMS: CONSTITUTIONAL: No fever, reports of fatigue and extreme weakness CARDIOVASCULAR: No chest pain, no palpitations, no syncope. PULMONARY: No shortness of breath, no cough, GASTROINTESTINAL: No diarrhea, no nausea, no vomiting, no abdominal pain. Reports no appetite NEUROLOGICAL: No headaches, reports weakness PHYSICAL EXAMINATION: GENERAL: The patient is alert although lethargic, malnourished, ill-appearing, emaciated, elderly appearing HEENT: Pupils are round and equally reacting to light. EOMI. No scleral icterus. No conjunctival pallor. Normocephalic, atraumatic. No pharyngeal erythema. No thyromegaly. CARDIOVASCULAR: S1 and S2 present. No murmurs, rubs, or gallops. PULMONARY: Chest is clear to auscultation, no wheezing or crackles. ABDOMEN: Soft, nontender, nondistended, normoactive bowel sounds. No palpable organomegaly. MUSCULOSKELETAL: No joint swelling or deformity. EXTREMITIES: No cyanosis, clubbing, or pedal edema. NEUROLOGICAL: Gross neurological examination did not reveal any focal deficits. Diffusely weak SKIN: No rashes. Pressure ulcer of the sacral region that was present on admi ssion Assessment: Failure to thrive with generalized generalized weakness, dehydration and unable to take her himself. Advanced dementia Leukocytosis. Trending down. UA and chest x-ray negative for infection. Follow-up blood cultures. Recent admission at [facility], was treated for UTI/pneumonia Severe protein Calorie malnutrition with a BMI of 18.4 Hypertension Hyperlipidemia GERD Sacral decub ulcer GI prophylaxis DVT prophylaxis Full code Plan: Patient continued on gentle hydration Family discussing with hospice and undergoing financial assessment for [facility] Patient with no appetite and not eating very well Severe excoriation noted on the buttock area and sacral decub area recommend frequent offloading with some Medihoney and foam for support Await further discussion with family regarding discharge planning Possible discharge to hospice house in the next 24 hours Overall poor prognosis The impression and plan of care has been dictated by Magda Hernandez, Nurse Practitioner as directed. Dr. Sea MD I have performed a history and examination and MDM of this patient, discussed the same with the dictator, and agree with the dictator's assessment and plan as written ,documented as a scribe. Based on total visit time, I have performed more than 50% of the visit. Objective - Vital Signs Vital signs: Vital Signs Temp 97.2 F L 02/10/24 07:31 Pulse 74 02/10/24 07:31 Resp 18 02/10/24 07:31 BP 121/65 02/10/24 07:31 Pulse Ox 98 02/10/24 07:31 FiO2 Intake & Output 02/09/24 02/10/24 02/10/24 18:59 06:59 18:59 Intake Total 1140 Balance 1140 Intake: Oral 1140 Other: Voiding Method Incontinent Incontinent # Voids 2 # Bowel Movements 3 - Labs CBC & Chem 7: 02/10/24 08:16 02/10/24 08:16 Labs: Abnormal Lab Results - Last 24 Hours (Table) 02/10/24 02/10/24 Range/Units 08:16 08:16 WBC 16.1 H (3.8-10.6) k/uL Hgb 11.9 L (13.0-17.5) gm/dL Hct 37.2 L (39.0-53.0) % Neutrophils # 11.8 H (1.3-7.7) k/uL Sodium 135 L (137-145) mmol/L BUN 8 L (9-20) mg/dL Creatinine 0.47 L (0.66-1.25) mg/dL Glucose 104 H (74-99) mg/dL Total Protein 5.3 L (6.3-8.2) g/dL Albumin 2.7 L (3.5-5.0) g/dL Microbiology - Last 24 Hours (Table) 02/06/24 18:25 Blood Culture - Preliminary Blood
--- NOTE | 2024-02-11 10:08 | P.DS ---
Providers Date of admission: 02/06/24 21:08 Expected date of discharge: 02/11/24 Attending physician: Carlos Jarrett Primary care physician: Stated None Hospital Course: Final diagnosis Failure to thrive with generalized weakness, dehydration and unable to take of himself. Advanced dementia Leukocytosis. Trending down. UA and chest x-ray negative for infection. Follow-up blood cultures. Recent admission at [facility], was treated for UTI/pneumonia Severe protein Calorie malnutrition with a BMI of 18.4 Hypertension Hyperlipidemia GERD Sacral decub ulcer GI prophylaxis DVT prophylaxis Full code Discharge disposition Patient is being discharged in a stable condition with guarded prognosis to [facility]. Total time taken is greater than 35 minutes. Hospital course This is a 73-year-old male who was recently admitted with advancing dementia with concerns of generalized weakness, poor oral intake and unable to take care of himself. Concerns of advancing dementia that is progressing and was also recently hospitalized at [facility] for urinary tract infection with concerns of pneumonia. Patient has not been eating is not taking care of himself and family unable to care for him concerns with overall wellbeing and quality of life and has met with hospice and has decided on [facility] with supportive comfort measures. Patient with an extensive sacral decubitus ulcer on admission recommend to continue with supportive care for pain management and frequent offloading to this area. Patient is continued on dysphagia ground diet with aspiration precautions and minimally eating. Please refer to other dictations for further HPI. has met with [facility] and underwent financial assessment and has been accepted at [facility] today. Currently no reports of chest pain, shortness of breath, or palpitations. Patient is afebrile. No reports of nausea or vomiting and patient is tolerating diet. Patient will be discharged to [facility] h ouse today. Overall poor prognosis Physical exam: Gen: This is a 73-year-old male who is awake, lethargic, alert and oriented x 1- 2, thin build, elderly appearing, cachectic HEENT: Head is atraumatic, normocephalic. Pupils equal, round. Sclerae is anicteric. NECK: Supple. No JVD. No lymphadenopathy. No thyromegaly. LUNGS: Diminished breath sounds bilaterally otherwise clear to auscultation. No wheezes or rhonchi. No intercostal retractions. HEART: S1, S2 are muffled ABDOMEN: Soft. Thin. Bowel sounds are present. No masses. No tenderness. EXTREMITIES: No pedal edema. No calf tenderness. NEUROLOGICAL: Patient is awake, alert and oriented x1-2. Diffusely weak Please refer to medication reconciliation sheet for a list of medications. The impression and plan of care has been dictated by Magda Hernandez, Nurse Practitioner as directed. Dr. Sea MD I have performed a history and examination and MDM of this patient, discussed the same with the dictator, and agree with the dictator's assessment and plan as written ,documented as a scribe. Based on total visit time, I have performed more than 50% of the visit. Patient Condition at Discharge: Fair Plan - Discharge Summary Discharge Rx Participant: Yes New Discharge Prescriptions: Continue Simvastatin [Zocor] 40 mg PO HS Memantine [Namenda] 10 mg PO BID Docusate [Colace] 100 mg PO BID OLANZapine ODT [ZyPREXA Zydis] 5 mg PO HS Pantoprazole Sodium [Protonix] 20 mg PO BID Aspirin EC [Ecotrin Low Dose] 81 mg PO DAILY Metoprolol Tartrate [Lopressor] 12.5 mg PO BID Valproic Acid Oral Soln [Depakene Syrup] 250 mg PO BID Discontinued Ciprofloxacin HCl [Cipro] 500 mg PO BID hydroCHLOROthiazide [Hydrodiuril] 25 mg PO DAILY Discharge Medication List Aspirin EC [Ecotrin Low Dose] 81 mg PO DAILY 02/07/24 [History] Docusate [Colace] 100 mg PO BID 02/07/24 [History] Memantine [Namenda] 10 mg PO BID 02/07/24 [History] Metoprolol Tartrate [Lopressor] 12.5 mg PO BID 02/07/24 [History] OLANZapine ODT [ZyPREXA Zydis] 5 mg PO HS 02/07/24 [History] Pantoprazole Sodium [Protonix] 20 mg PO BID 02/07/24 [History] Simvastatin [Zocor] 40 mg PO HS 02/07/24 [History] Valproic Acid Oral Soln [Depakene Syrup] 250 mg PO BID 02/07/24 [History] Follow up Appointment(s)/Referral(s): [facility] [REFERRING] - 1 Week Activity/Diet/Wound Care/Special Instructions: Patient is going to [facility] Activity as tolerated Continue current pleasure diet Continue with supportive wound care to the buttocks region Discharge Disposition: OTHER INSTITUTION NOT DEFINED
== END 2024-02-11 12:56 | disposition hospice, home (50) ==
LOC: EC 17:16 → 5NMEDONC 21:08
PROVIDERS: ADMIT Hospitalist; ATTEND Hospitalist
DX: R62.7 Adult failure to thrive (principal); E86.0 Dehydration; R63.0 Anorexia; R53.1 Weakness; F03.90 Unspecified dementia, unspecified severity, without behavioral disturbance, psychotic disturbance, mood disturbance, and anxiety; I10 Essential (primary) hypertension; E78.5 Hyperlipidemia, unspecified; K21.9 Gastro-esophageal reflux disease without esophagitis; L89.159 Pressure ulcer of sacral region, unspecified stage; D72.829 Elevated white blood cell count, unspecified; E43 Unspecified severe protein-calorie malnutrition; Z68.1 Body mass index [BMI] 19.9 or less, adult; Z79.82 Long term (current) use of aspirin; Z79.899 Other long term (current) drug therapy
CPT/HCPCS: 96376 ×4; 96374; 99285; 36415; 94760; 93005; 97162; 97165; 92610; 92526; 82747; 80053 ×3; 80048; 82607; 82140; 83735 ×2; 84100 ×2; 84443; 84484; 85025 ×4; 85610; 85730; 81001; 87040; 71046; 70450; G0378 ×6; G0480; J2470 ×6; 80320